=== PATIENT | female | born 1960 | race Caucasian/White ===

== ENCOUNTER → 2022-09-22 09:50 | Outpatient (CLI) | payer OTHER, SELFPAY ==
--- NOTE | ~2022-09-22 | XR_ITS ---
EXAMINATION: XR thoracic spine 3V DATE: 09/22/2022 10:27 INDICATION: Thoracic back pain TECHNIQUE: AP, lateral and lateral swimmer's views of the thoracic spine were obtained. COMPARISON: None. FINDINGS: There is partially imaged levoscoliosis of the thoracolumbar spine. No fracture is identifi ed. The thoracic vertebral body heights are normal. There is mild loss of intervertebral disc space h eight at multiple levels in the thoracic spine. IMPRESSION: 1. Mild thoracic spondylosis without acute findings. 2. Thoracolumbar levoscoliosis. Reviewed, dictated and finalized at location B.
== END ==
PROVIDERS: PCP Family Medicine; Visit Provider Family Medicine
DX: M54.6 Pain in thoracic spine (principal)
CPT/HCPCS: 72072

== ENCOUNTER → 2022-09-23 11:25 | Outpatient (CLI) | payer OTHER, SELFPAY ==
--- NOTE | ~2022-09-23 | US_ITS ---
EXAMINATION: US pelvic complete w TV DATE: 09/23/2022 11:57 INDICATION: Right lower quadrant pain TECHNIQUE: Multiple transabdominal and endovaginal sonographic images of the pelvis were obtained. COMPARISON: None. FINDINGS: The uterus measures 6.2 x 3.8 x 4.9 cm. Isoechoic masses of the uterus, measuring up to 2.1 x 2.0 cm, have the appearance of intramural fibroids. One exerts some mass effect on the endometrial complex. The endometrial complex measures 6 mm. There is a trace amount of fluid in the endometrial canal of unclear etiology or significance. The left ovary is not definitely visualized however no lef t adnexal abnormality is seen. The right ovary measures 2.0 x 1.5 x 2.3 cm. There is normal vascular flow in the right ovary. There is no free fluid in the pelvis. IMPRESSION: 1. Small uterine fibroids. 2. Small volume of fluid in the endometrial canal of unclear etiology or significance. Reviewed, dictated and finalized at location F. IMPRESSION: 1. Small uterine fibroids. 2. Small volume of fluid in the endometrial canal of unclear etiology or signif icance.
== END ==
PROVIDERS: PCP Family Medicine; Visit Provider Family Medicine
DX: R10.31 Right lower quadrant pain (principal); D25.9 Leiomyoma of uterus, unspecified
CPT/HCPCS: 76830; 76856

== ENCOUNTER → 2022-09-26 08:07 | Outpatient (CLI) | payer OTHER, SELFPAY ==
--- NOTE | ~2022-09-26 | US_ITS ---
EXAMINATION: US abdomen complete DATE: 09/26/2022 08:41 INDICATION: Right lower quadrant pain TECHNIQUE: Multiple grayscale and Doppler ultrasound images of the abdomen were obtained. COMPARISON: None available FINDINGS: The head and body of the pancreas are normal. The pancreatic tail is obscured by bowel gas. The liver is normal with normal echogenicity and echotexture. No surface nodularity. Normal hepatope prosper flow in the main portal vein. Stones are present in the nondistended gallbladder. No gallbladder wall thickening or pericholecystic fluid. The normal common bile duct measures 3 mm. There was no son ographic Casey sign. The visualized portions of the aorta and inferior vena cava are normal. The spleen is normal in appearance and measures 8.9 cm. The right kidney measures 9.2 x 4.3 x 6.0 cm. The left kidney measures 9.4 x 4.4 x 4.8 cm. The kidneys demonstrate normal parenchymal echogenicity . There is no hydronephrosis. IMPRESSION: 1. Cholelithiasis without evidence of cholecystitis. Reviewed, dictated and finalized at location B.
== END ==
PROVIDERS: PCP Family Medicine; Visit Provider Family Medicine
DX: R10.31 Right lower quadrant pain (principal); K80.20 Calculus of gallbladder without cholecystitis without obstruction
CPT/HCPCS: 76700

== ENCOUNTER 2022-11-06 06:28 | Day surgery (SDC) | payer OTHER, SELFPAY ==
[2022-10-22 11:19] VITALS: BMI 29.2
--- NOTE | 2022-11-05 16:08 | P.PNAN_ITS ---
Anes - Initial Pre Proc Eval Procedure: Operation Date: 11/06/22 08:00 Proposed Procedures p Screening Colonoscopy - Michele Kapoor MD Date/Time: 11/05/22 16:08 Surgeon: Michele Kapoor MD Pre Op Diagnosis: Neoplasm Screening Patient Data Age: 62 Gender: F Height: 1.6 m Weight: 75 kg Allergies Allergy/AdvReac Type Severity Reaction Status Date / Time No Known Allergies Allergy Verified 11/06/22 06:56 Home Medications Medication Instructions Recorded Confirmed Type cyclobenzaprine 10 mg tablet 10 mg PO TID PRN muscle spasm #30 08/19/22 11/06/22 Rx tabs sodium,potassium,mag sulfates 17.5 See Rx Instructions PO .COMPLEX 09/08/22 11/06/22 Rx gram-3.13 gram-1.6 gram oral soln #354 mL (Suprep Bowel Prep Kit) Patient hx anesthesia problems: none Family hx anesthesia problems: none Results Review: All pre-operative results and documents have been reviewed as part of the pre- operative evaluation. FORMERLY [facility], [facility] Past Medical History Medical History BMI 29.0-29.9,adult RLQ abdominal pain Scoliosis of thoracic spine Screen for colon cancer Screening for lipid disorders Screening mammogram, encounter for Surgical History Surgical History Delivery by section Family History Family History Grandparent Arthritis Diabetes mellitus Mother Thyroid condition Hypertension Father Hypertension Cerebrovascular accident Sibling Heart disease Hypertension Acute myocardial infarction Social History Social History Smoking status: Never smoker Second hand tobacco smoke exposure: No Alcohol intake: never Substance use: never Substance use type: does not use Lack of Transportation: No Lack of Food: Never True Current Housing: I Have Housing Concerned About Future Housing: No Difficulty Paying Gas/Electric Bills: No Difficulty Paying for Meds: No Currently Unemployed: No Education: Bachelor's Degree Difficulty w/ Childcare or Family Care: No Living arrangements: with family Occupation/Education: occupation Additional occupation/education comments: Teacher-[employer] Gender identity (if verbalized by the patient): Female Spiritual care concerns: No Anes - Eval Final PreProcedure Day of Procedure 11/05/22 16:08 Patient weight: overweight Heart: regular rate and rhythm Lungs: clear to auscultation Airway: Mallampati scale class II Neurological: alert and oriented Last oral intake: >/= 8 hours ASA classification: II Emergent: no Anesthetic plan: proceed Anesthesia type and monitoring: general GIVS and standard monitoring Results Review: All pre-operative results and documents have been reviewed as part of the pre- operative evaluation. Informed Consent: The patient's anesthetic plan and its attendant risks and benefits were discussed with the patient/family/POA. Questions were solicited and answers provided to the satisfaction of the patient/family/POA.
[2022-11-06] MEDS: LACTATED RINGERS 1,000 ML 150 ML IV CONT (07:00)
--- NOTE | 2022-11-06 07:20 | PM.HPGS ---
History of Present Illness History of Present Illness Consent: Risks, benefits, and alternatives have been discussed and questions answered. Patient agrees to proceed with procedure. Chief complaint: Neoplasm Screening Narrative: Zayda Hook is a 62 year old female Presents for screening colonoscopy. Patient's current weight appetite and bowel movements are normal. She denies abdominal pain. Patient has had no bleeding. Family history is noncontributory. Patient presents today for screening colonoscopy. Review of Systems Review of Systems: Review of systems noncontributory. [facility] Past Medical History Medical History BMI 29.0-29.9,adult RLQ abdominal pain Scoliosis of thoracic spine Screen for colon cancer Screening for lipid disorders Screening mammogram, encounter for Surgical History Surgical History Delivery by section Family History Family History Grandparent Arthritis Diabetes mellitus Mother Thyroid condition Hypertension Father Hypertension Cerebrovascular accident Sibling Heart disease Hypertension Acute myocardial infarction Social History Social History Smoking status: Never smoker Second hand tobacco smoke exposure: No Alcohol intake: never Substance use: never Substance use type: does not use Lack of Transportation: No Lack of Food: Never True Current Housing: I Have Housing Concerned About Future Housing: No Difficulty Paying Gas/Electric Bills: No Difficulty Paying for Meds: No Currently Unemployed: No Education: Bachelor's Degree Difficulty w/ Childcare or Family Care: No Living arrangements: with family Occupation/Education: occupation Additional occupation/education comments: [employer] Gender identity (if verbalized by the patient): Female Spiritual care concerns: No Meds Home Medications and Allergies Home Medications Medication Instructions Recorded Confirmed Type cyclobenzaprine 10 mg tablet 10 mg PO TID PRN muscle spasm #30 08/19/22 11/06/22 Rx tabs sodium,potassium,mag sulfates 17.5 See Rx Instructions PO .COMPLEX 09/08/22 11/06/22 Rx gram-3.13 gram-1.6 gram oral soln #354 mL (Suprep Bowel Prep Kit) Allergies Allergy/AdvReac Type Severity Reaction Status Date / Time No Known Allergies Allergy Verified 11/06/22 06:56 Exam Narrative: Physical exam reveals patient be alert. Vital signs stable. HEENT exam is unremarkable. Patient is anicteric. Lungs are clear to auscultation and percussion. Heart is without murmur or extra sounds. Abdomen bowel sounds are present soft nontender with no organomegaly. Digital external rectal exam is normal. Assessment and Plan Assessment and plan (1) Screen for colon cancer: Code(s): Z12.11 - Encounter for screening for malignant neoplasm of colon Status: Acute Assessment and Plan: Patient presents for neoplasia screening colonoscopy. She appears to be at average risk for colon polyps. Further recommendations may be given after endoscopy.
[2022-11-06 07:45] VITALS: BP 170/102; PULSE 101; RESP 18; TEMP 37.3; O2SAT 99
[2022-11-06 08:34] VITALS: BP 108/70; PULSE 95; RESP 16; O2SAT 99
[2022-11-06 08:44] VITALS: BP 123/79; PULSE 87; RESP 16; O2SAT 98
[2022-11-06 08:54] VITALS: BP 124/84; PULSE 81; RESP 16; O2SAT 100
--- NOTE | 2022-11-06 12:54 | WPDANESPN ---
Anes - Prog Note Post-Op Date/Time: 11/06/22 12:54 Cardiovascular status: normal Respiratory status: normal Airway patency: baseline Mental status: baseline Post-Op hydration status: normal Vital Signs: Last Vital Signs Temp 37.3 C 11/06/22 07:45 Pulse 81 11/06/22 08:54 Resp 16 11/06/22 08:54 BP 124/84 11/06/22 08:54 Pulse Ox 100 11/06/22 08:54 O2 Del Method Room Air 11/06/22 08:54 Pain Score (VAS): 0 I/O: Intake & Output 11/05/22 11/06/22 11/06/22 23:59 07:59 15:59 Intake Total 800 Balance 800 Post-procedural complaints: none Patient Feedback: Patient satisfied with anesthetic care. Other Findings: Patient vital signs back to baseline. Patient denies nausea and vomiting. Patient's pain under control. Patient OK for discharge.
== END 2022-11-06 09:22 | disposition home or self-care (01) ==
PROVIDERS: PCP Family Medicine; Visit Provider Internal Medicine Gastroenterology
PROC: 0DJD8ZZ Inspection of Lower Intestinal Tract, Via Natural or Artificial Opening Endoscopic (ICD-10-PCS; CPT 45378; principal; 2022-11-06 08:00)
DX: Z12.11 Encounter for screening for malignant neoplasm of colon (principal)
CPT/HCPCS: 45378

== ENCOUNTER → 2023-01-22 13:14 | Outpatient (CLI) | payer OTHER, SELFPAY ==
--- NOTE | ~2023-01-22 | MM_ITS ---
EXAMINATION: MM screening subha BI w angus HISTORY: Screening mammogram TECHNIQUE: Craniocaudal and mediolateral oblique 3-D tomosynthesis images were obtained and synthetic 2-D images were generated. CAD analysis was submitted and interpreted. COMPARISON: No prior mammogram is available for comparison at this institution. BREAST PARENCHYMAL COMPOSITION: The breasts are almost entirely fatty. FINDINGS: There is no evidence of suspicious mass, calcification, or architectural distortion to sugg est malignancy in either breast. There has been no suspicious interval change. IMPRESSION: 1. No mammographic evidence of malignancy. 2. Recommend routine screening mammography in one year. BI-RADS Category 1: Negative Reviewed, dictated and finalized at location A.
== END ==
PROVIDERS: PCP Family Medicine; Visit Provider Family Medicine
DX: Z12.31 Encounter for screening mammogram for malignant neoplasm of breast (principal)
CPT/HCPCS: 77063; 77067